=== PATIENT | male | born 1955 | race Caucasian/White ===

== ENCOUNTER 2017-03-15 15:31 | Emergency (ER) | payer MEDICARE, MEDICAID ==
[~2017-03-15] VITALS: Ht 175.3 cm; Wt 72.6 kg
[~2017-03-15 15:31] MED LIST: AMITRIPTYLINE 225 MG PO; AMITRIPTYLINE 550 MG PO; ASPIRIN 81MG TA81 MG PO; GABAPENTIN 600600 MG PO; LISINOPRIL40 MG PO; LORTAB 5/3251 TAB PO; NAPROXEN SODIU500 MG PO; NORVASC 10MG. T10 MG PO; PANTOPRAZOLE SO40 MG PO; PRAVACHOL20 MG PO; VITAMIN D1000 IU PO
[2017-03-15 15:36] VITALS: BP 151/73
--- NOTE | 2017-03-15 15:41 | Emergency Room Report ---
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 Clinical Suspician of Infection? Mental Status: Sepsis Risk: Have you (or family members/close friends) recently traveled outside the [place]? If Yes, where/when: Have you had exposure to infectious disease within the past month? TB? Other? Specify: Source patient, RN notes reviewed Exam Limitations no limitations Comment Pt brought to the ED by police for Medical Clearance before going to snf. He reports he has been drinking alcohol about every day for the past 10 years and today says he has drunk about a pint of ETOH since around 12 noon. He is awake and alert and says, "I might be a little tipsy but I am not drunk" Cardiac Chest Pain Chest pain indicative of cardiac No ALLERGIES Coded Allergies: No Known Allergies (10/16/15) Home Medications Reported Medications AMLODIPINE BESYLATE (Norvasc) 5 MG PO DAILY ASPIRIN (Aspirin) 81 MG PO DAILY Pravastatin Sodium (Pravachol) 20 MG PO QHS Lisinopril (Lisinopril 40MG) 40 MG PO DAILY Pantoprazole Sodium (Pantoprazole 40MG) 40 MG PO DAILY History Medical History General CAD? No Angina: No MT: No Hypertension? Yes Hyperlipidemia? Yes CHF? No DVT? No PE? No COPD? No Asthma? No Anemia? No GERD? No Gastric ulcers? No GI Bleed? No Hernia? Yes Thyroid Problems? No Hypothyroidism? No CVA? No Seizures? No Diabetes? No Renal Insuffiency? No End Stage Renal Disease? No UTI? No Stones? No BPH? No GB Disease: No Nephritic Syndrome? No Asplenia? No Hepatitis? No Sickle Cell Disease? No Arthritis? Yes Migraines? No Cataracts? No Glaucoma? No MRSA? No HIV? No TB? No Anxiety? No Depression? No Cancer? No More? No Immunization Hx DT/Tetanus 1-4 Years Ago Surgical Hx Previous Surgery?Y Hernia Repair JANE ANKLE Social History Smoking Hx Packs/day < 1 Pack Alcohol Alcohol: Yes Review of Systems All Other Systems Reviewed and Negative Constitutional see HPI Psychiatric/Neurological see HPI Physical Exam Vital Signs Vital Signs Date Time Temp Pulse Resp B/P Pulse O2 O2 Flow FiO2 Ox Delivery Rate 03/15 1536 98.1 98 20 151/73 99 General Appearance normal appearance, WD/WN, no apparent distress Ear, Nose, Throat has some dried blood on his nose but says he is fine. Says last Tetanus was about 7 to 8 years ago Respiratory Status No: respiratory distress. Cardiovascular normal exam, regular rate/rhythm Neurologic alert, match up person II-XII nml as tested, normal exam, no motor/sensory deficits, oriented x 3 Medical Decision Making LABS/Meds/Orders Pt receiving controlled substance in ED? No Departure Departure Time of Disposition 1557 Disposition DC Home or Self Care(routine) Clinical Impression Primary Impression: Medical clearance for incarceration Secondary Impressions: Acute alcohol intoxication Qualifiers: Complication of substance-induced condition: uncomplicated Qualified Code: F10.929 - Alcohol use, unspecified with intoxication, unspecified Condition STABLE Referrals Senthil FISHER,A.C. (PCP) Additional Instructions Pt is medically cleared for incarceration Discharge Counseling Counseled pt/family regarding diagnosis, home care ED Critical Care Critical Care No If Critical Care minutes are documented, the time involved in the performance of seperately reportable procedures was not counted toward critical care time documented. I directly delivered medical care to this critically ill and/or injured patient. Timely evaluation and treatment was necessary to address the significant organ system(s) dysfunction present in this patient. at 1557
--- NOTE | 2017-03-15 15:41 | Emergency Room Report ---
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 Clinical Suspician of Infection? Mental Status: Sepsis Risk: Have you (or family members/close friends) recently traveled outside the [place]? If Yes, where/when: Have you had exposure to infectious disease within the past month? TB? Other? Specify: Source patient, RN notes reviewed Exam Limitations no limitations Comment Pt brought to the ED by police for Medical Clearance before going to [facility]. He reports he has been drinking alcohol about every day for the past 10 years and today says he has drunk about a pint of ETOH since around 12 noon. He is awake and alert and says, "I might be a little tipsy but I am not drunk" Cardiac Chest Pain Chest pain indicative of cardiac No ALLERGIES Coded Allergies: No Known Allergies (10/16/15) Home Medications Reported Medications AMLODIPINE BESYLATE (Norvasc) 5 MG PO DAILY ASPIRIN (Aspirin) 81 MG PO DAILY Pravastatin Sodium (Pravachol) 20 MG PO QHS Lisinopril (Lisinopril 40MG) 40 MG PO DAILY Pantoprazole Sodium (Pantoprazole 40MG) 40 MG PO DAILY History Medical History General CAD? No Angina: No OK: No Hypertension? Yes Hyperlipidemia? Yes CHF? No DVT? No PE? No COPD? No Asthma? No Anemia? No GERD? No Gastric ulcers? No GI Bleed? No Hernia? Yes Thyroid Problems? No Hypothyroidism? No CVA? No Seizures? No Diabetes? No Renal Insuffiency? No End Stage Renal Disease? No UTI? No Stones? No BPH? No GB Disease: No Nephritic Syndrome? No Asplenia? No Hepatitis? No Sickle Cell Disease? No Arthritis? Yes Migraines? No Cataracts? No Glaucoma? No MRSA? No HIV? No TB? No Anxiety? No Depression? No Cancer? No More? No Immunization Hx DT/Tetanus 1-4 Years Ago Surgical Hx Previous Surgery?Y Hernia Repair JANE ANKLE Social History Smoking Hx Packs/day < 1 Pack Alcohol Alcohol: Yes Review of Systems All Other Systems Reviewed and Negative Constitutional see HPI Psychiatric/Neurological see HPI Physical Exam Vital Signs Vital Signs Date Time Temp Pulse Resp B/P Pulse O2 O2 Flow FiO2 Ox Delivery Rate 03/15 1536 98.1 98 20 151/73 99 General Appearance normal appearance, WD/WN, no apparent distress Ear, Nose, Throat has some dried blood on his nose but says he is fine. Says last Tetanus was about 7 to 8 years ago Respiratory Status No: respiratory distress. 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 No Departure Departure Time of Disposition 1557 Disposition DC Home or Self Care(routine) Clinical Impression Primary Impression: Medical clearance for incarceration Secondary Impressions: Acute alcohol intoxication Qualifiers: Complication of substance-induced condition: uncomplicated Qualified Code: F10.929 - Alcohol use, unspecified with intoxication, unspecified Condition STABLE Referrals Senthil FISHER,A.C. (PCP) Additional Instructions Pt is medically cleared for incarceration Discharge Counseling Counseled pt/family regarding diagnosis, home care ED Critical Care Critical Care No If Critical Care minutes are documented, the time involved in the performance of seperately reportable procedures was not counted toward critical care time documented. I directly delivered medical care to this critically ill and/or injured patient. Timely evaluation and treatment was necessary to address the significant organ system(s) dysfunction present in this patient. at 1550
--- OUTSIDE RECORDS SUMMARY | 2017-03-15 16:10 | External Medical Summary Rpt | CCD ---
Author Author , CARLOS A Organization CARLOS A Address Unknown Phone [email or web address] Purpose Continuity of Care Document - 01-25-2017 through 2016 Results Labs Lab Lab Date Result Refere Interp Status Commen Order Detail nces retati t Range on Magnesium SerPl-mCnc (01-31-2017 03:39) Magnesi 1.9 1.9-2.4 complet um 017 mg/dL ed SerPl-m 03:39 Cnc Phosphate SerPl-mCnc (01-31-2017 03:39) Phospha 3.3 2.5-4.5 complet te 017 mg/dL ed SerPl-m 03:39 Cnc Ca-I SerPl ISE-sCnc (01-29-2017 04:00) Ca-I 4.9 4.6-5.1 complet SerPl 017 mg/dL ed ISE-sCn 04:00 c Magnesium SerPl-mCnc (01-29-2017 04:00) Magnesi 2.1 1.9-2.4 complet um 017 mg/dL ed SerPl-m 04:00 Cnc Phosphate SerPl-mCnc (01-29-2017 04:00) Phospha 3.1 2.5-4.5 complet te 017 mg/dL ed SerPl-m 04:00 Cnc Phosphate SerPl-mCnc (01-28-2017 02:00) Phospha 2.3 2.5-4.5 complet te 017 mg/dL ed SerPl-m 02:00 Cnc Magnesium SerPl-mCnc (01-28-2017 02:00) Magnesi 2.2 1.9-2.4 complet um 017 mg/dL ed SerPl-m 02:00 Cnc Ca-I SerPl ISE-sCnc (01-26-2017 02:39) Ca-I 4.7 4.6-5.1 complet SerPl 017 mg/dL ed ISE-sCn 02:39 c Magnesium SerPl-mCnc (01-26-2017 02:39) Magnesi 2.1 1.9-2.4 complet um 017 mg/dL ed SerPl-m 02:39 Cnc Phosphate SerPl-mCnc (01-26-2017 02:39) Phospha 4.3 2.5-4.5 complet te 017 mg/dL ed SerPl-m 02:39 Cnc Lactate Bld-sCnc (01-25-2017 16:58) Lactate 1.2 complet 017 mmol/L ed Bld-sCn 16:58 c Lactate Bld-sCnc (01-25-2017 12:29) Lactate 1.0 complet 017 mmol/L ed Bld-sCn 12:29 c Lipase SerPl-cCnc (01-25-2017 12:29) Lipase 21 U/L 19-63 complet SerPl-c 017 ed Cnc 12:29
--- OUTSIDE RECORDS SUMMARY | 2017-03-15 16:10 | External Medical Summary Rpt | Continuity of Care Document ---
Author Author Organization Address Unknown Phone Unavailable Care Team Providers Care Transmitter Engineer In Charge Name Role Phone , Unavailable Unavailable EMS Current Medications Section EMS Allergies and Adverse Reactions EMS Past Medical History Medications Administered Section EMS Procedures Performed EMS Vital Signs EMS Patient Care Report Narrative [facility] dispatched for a 61yoM, sick case, ABD pain. Upon arrival, Pt found ambulating to EC, grimacing and holding his stomach. He was helped to the stretcher, and secured to it. Pt c/o ABD pain 10 of 10, worsening since 0800hrs, with N/V. Diffuse firmness, only mild tenderness. En route, Pt condition stable. IV started. Pt care to RN at [facility]. JACKELYN
--- OUTSIDE RECORDS SUMMARY | 2017-03-15 16:10 | External Medical Summary Rpt | CCD ---
Author Author , CARLOS A Organization CARLOS A Address Unknown Phone [email or web address] Purpose Continuity of Care Document - 01-25-2017 [...]
--- OUTSIDE RECORDS SUMMARY | 2017-03-15 16:10 | External Medical Summary Rpt | Continuity of Care Document ---
Author Author Organization Address Unknown Phone Unavailable Care Team Providers Care Inweaver Name Role Phone , Unavailable Unavailable EMS [...] IV started. Pt care to RN at [facility] ED. JACKELYN
--- OUTSIDE RECORDS SUMMARY | 2017-03-15 16:11 | External Medical Summary Rpt ---
Author Author DAVID Romano, DAVID Romano Organization [employer] Address Unknown Phone Unavailable
--- OUTSIDE RECORDS SUMMARY | 2017-03-15 16:11 | External Medical Summary Rpt | CCD ---
Demographics Preferred Language Turkish Marital Status Unknown Druze Affiliation Unknown Race Unknown Ethnic Group Unknown Author Author , CARLOS A HERNANDEZ Address Unknown Phone carlos Immunization No patient found.
--- OUTSIDE RECORDS SUMMARY | 2017-03-15 16:11 | External Medical Summary Rpt | CCD ---
Author Author [employer] Organization [employer] Address Unknown Phone Unavailable Purpose Continuity of Care Document - through 2016
--- OUTSIDE RECORDS SUMMARY | 2017-03-15 16:11 | External Medical Summary Rpt | CCD ---
Demographics Preferred Language Albanian Marital Status Unknown Mu-Ism Affiliation Unknown Race Unknown Ethnic Group Unknown Author Author , CARLOS A HRENANDEZ Address Unknown Phone carlos Immunization No patient found.
== END 2017-03-15 16:08 | disposition home or self-care (01) ==
LOC: ER 15:31
DX: F10.929 Alcohol use, unspecified with intoxication, unspecified (principal); F17.210 Nicotine dependence, cigarettes, uncomplicated; E78.5 Hyperlipidemia, unspecified; I10 Essential (primary) hypertension; Z79.82 Long term (current) use of aspirin